=== PATIENT | male | born 1975 | race Two or more races ===

== ENCOUNTER 2019-10-23 13:27 | Emergency (ER) | payer MEDICAID ==
[~2019-10-23] VITALS: Ht 177.8 cm; Wt 79.4 kg
--- NOTE | 2019-10-23 13:43 | NUR ---
BIB [facility] C/O WEAKNESS AND CHEST PAIN S/P LIFTING WATER AT [employer]. PATIENT A/OX4, BREATHING EVEN AND UNLABORED, NO SOB NOTED, CHANGED INTO GOWN, ATTACHED TO THE FABRICATION AND LAYOUT CRAFTSMAN. EKG DONE.
[2019-10-23 13:51] LABS: CALCIUM, SERUM 8.8 mg/dL (8.5-10.1); MEAN CORPUSCULAR HGB CONC 35 g/dl (31.0-36.0); PLATELET COUNT (AUTO) 250 /CMM (150-450)
[2019-10-23] MEDS ORDERED: ASPI-605 PO (13:53)
[2019-10-23] MEDS ORDERED: TICA90TA PO (13:53)
[2019-10-23] MEDS ORDERED: GABA800T11 PO (13:53)
[2019-10-23] MEDS ORDERED: METO-357 PO (13:53)
[2019-10-23] MEDS ORDERED: LISI-607 PO (13:53)
[2019-10-23 13:56] LABS: BASOPHILS # (AUTO) 0.1 /CMM (0.0-0.2); BASOPHILS % (AUTO) 0.9 % (0.0-2.0); HEMATOCRIT 44 % (39-51); LYMPHOCYTES # (AUTO) 1.9 /CMM (0.8-4.8); LYMPHOCYTES % (AUTO) 25.8 % (20.0-44.0); MEAN CORPUSCULAR VOLUME 90 fL (80-96); MONOCYTES # (AUTO) 0.5 /CMM (0.1-1.30); MONOCYTES % (AUTO) 7.2 % (2.0-12.0); NEUTROPHILS # (AUTO) 4.6 /CMM (1.8-8.9); NEUTROPHILS % (AUTO) 64.1 % (43.0-81.0); RED BLOOD CELL COUNT(AUTO) 4.83 MIL/uL (4.5-6.0); WHITE BLOOD COUNT (AUTO) 7.2 K/uL (4.3-11.0)
--- NOTE | 2019-10-23 15:17 | NUR ---
PAGED DR Elizabeth GIRALDO FOR ADMISSION
--- NOTE | 2019-10-23 15:25 | NUR ---
GAVE MOVESHEET AND CLINICALS TO [facility]
--- NOTE | 2019-10-23 16:04 | NUR ---
SPOKE WITH FREEZER TUNNEL OPERATOR GAYE ANDRADES PROVIDED OVER THE PHONE. PER MD PATIENT IS STABLE FOR TRANSPORT. PER CM SHE'LL ARRANGE FOR TRANSPORTATION.
--- NOTE | 2019-10-23 17:00 | NUR ---
PER ADMITTING RECEIEVED AUTH TO ADMIT
--- NOTE | 2019-10-23 17:20 | NUR ---
@ 1720, Called Harish Ibarra at [phone]. Requested a confirmation and AUTH number for this admission prior to moving patient to the floor. I advised Stacey that patient is still in the ER and has not yet admitted to the floor under Dr. Vega. Per Stacey, she will transfer the patient to his [facility] and will call me back once transportation arranged.
--- NOTE | 2019-10-23 18:00 | NUR ---
PT IRATE. PT CALLED EMT "OBESE". PT MADE UNNECESSARY INSULTS TOWARDS STAFF. MOTHER AT BEDSIDE TRYING TO DEESCALATE SITUATION. PT CALLED [facility] "A BUNCH OF CATS AND DOGS".
--- NOTE | 2019-10-23 18:08 | NUR ---
Patient does not wish to proceed with medical care recommended by Dr. Baer. Patient given information related to possible complications, up to and including , which could occur as a result of leaving the hospital at this time. Patient verbalizes understanding of risks involved due to leaving against medical advice. Patient has signed AMA form. IV removed. Catheter intact and site benign. Pressure and 4x4 applied to site. No bleeding noted.
[2019-10-23 18:09] VITALS: BP 111/70
== END 2019-10-23 18:11 | disposition left against medical advice (07) ==
LOC: ER 13:31
DX: R07.89 Other chest pain (principal); I25.2 Old myocardial infarction; I10 Essential (primary) hypertension; Z95.5 Presence of coronary angioplasty implant and graft; Z79.82 Long term (current) use of aspirin; Z79.899 Other long term (current) drug therapy
CPT/HCPCS: 36415; 71045-TC; 80048-TC; 84484-TC; 85025-TC

== ENCOUNTER 2020-06-20 10:47 | Emergency (ER) | payer MEDICAID ==
[~2020-06-20] VITALS: Ht 180.3 cm; Wt 117.9 kg
[~2020-06-20 10:47] MED LIST: ASPI-605 PO; GABA800T11 PO; LISI-607 PO; METO-357 PO; TICA90TA PO
--- NOTE | 2020-06-20 11:00 | NUR ---
patient came in to the er c/o pressure like chest pain x few days, worst today s/p bike ride. On room air, breathing evenly and unlabored. connected to the monitor and pulse ox. kept comfortable, will continue to monitor accordingly.
[2020-06-20 11:17] LABS: BASOPHILS # (AUTO) 0.1 /CMM (0.0-0.2); BASOPHILS % (AUTO) 0.8 % (0.0-2.0); EOSINOPHILS % (AUTO) 1.4 % (0.0-6.0); HEMATOCRIT 47 % (39-51); HEMOGLOBIN 15.9 g/dL (13.5-17.5); LYMPHOCYTES # (AUTO) 1.6 /CMM (0.8-4.8); LYMPHOCYTES % (AUTO) 23.6 % (20.0-44.0); MEAN CORPUSCULAR HGB CONC 34 g/dl (31.0-36.0); MEAN CORPUSCULAR VOLUME 93 fL (80-96); MONOCYTES # (AUTO) 0.4 /CMM (0.1-1.30); NEUTROPHILS # (AUTO) 4.5 /CMM (1.8-8.9); NEUTROPHILS % (AUTO) 68.2 % (43.0-81.0); PLATELET COUNT (AUTO) 212 /CMM (150-450); RED BLOOD CELL COUNT(AUTO) 5.03 MIL/uL (4.5-6.0); WHITE BLOOD COUNT (AUTO) 6.7 K/uL (4.3-11.0)
[2020-06-20] MEDS ORDERED: LORAZEPAM INJ 2 MG/ML VIAL ONE (11:18)
[2020-06-20 11:24] LABS: CALCIUM, SERUM 8.5 mg/dL (8.5-10.1); CARBON DIOXIDE 28 mmol/L (21-32); CHLORIDE 100 mmol/L (98-107); CREATININE 1.4 mg/dL (0.6-1.3); GLUCOSE 292 mg/dL (74-106); POTASSIUM 4.1 mmol/L (3.5-5.1); SODIUM SERUM 136 mmol/L (136-145); UREA NITROGEN, BLOOD 13 mg/dL (7-18)
[2020-06-20] MEDS: LORAZEPAM INJ 2 MG/ML VIAL IV ONE (11:24)
[2020-06-20] MEDS: IV NS 0.9% 1,000 ML BAG IV ONE (11:50)
[2020-06-20 16:16] VITALS: BP 128/81
--- NOTE | 2020-06-20 16:16 | NUR ---
Patient discharged to home in stable condition. Written and verbal after care instructions given. Patient verbalizes understanding of instruction.IV removed. Catheter intact and site benign. Pressure and 4x4 applied to site. No bleeding noted.
== END 2020-06-20 16:16 | disposition home or self-care (01) ==
LOC: ER 10:52
DX: R07.89 Other chest pain (principal); I10 Essential (primary) hypertension; E11.65 Type 2 diabetes mellitus with hyperglycemia; I25.2 Old myocardial infarction; Z79.82 Long term (current) use of aspirin; Z79.899 Other long term (current) drug therapy
CPT/HCPCS: 36415; 71045; 80048; 84484 ×2; 85025; 93005 ×2; 96361; 96374; 99285; J2060; J7030

== ENCOUNTER 2022-06-27 06:31 | Emergency (ER) | payer MEDICAID ==
[~2022-06-27] VITALS: Ht 182.9 cm; Wt 83.9 kg
[~2022-06-27 06:31] MED LIST changes: -LISI-607 PO; +LISI-768 PO
--- NOTE | 2022-06-27 06:42 | NUR ---
TO ER BED 9. BIBRA39. L SIDE CP RADIATING TO L SHOULDER BURNING 05/13. PT IS ALERT AND ORIENTED. RR EVEN AND NON LABORED. CONNECTED TO MONITOR. AWAITING MD HERNANDEZ
[2022-06-27] MEDS ORDERED: ASPIRIN 81 MG TAB.CHEW PO ONE (07:00)
--- NOTE | 2022-06-27 07:25 | NUR ---
RECEIVED PT FROM ZOILA RN AWKE AND ALERT RESPIRATION SPONT AND EASY NO CHEST PAIN NSOB
[2022-06-27] MEDS ORDERED: ASPIRIN 81 MG TAB.CHEW ONE (07:29)
[2022-06-27 07:39] LABS: BASOPHILS # (AUTO) 0.1 K/uL (0.0-0.2); BASOPHILS % (AUTO) 1.1 % (0.0-2.0); EOSINOPHILS % (AUTO) 0.6 % (0.0-6.0); HEMATOCRIT 44 % (39-51); HEMOGLOBIN 15.2 g/dL (13.5-17.5); LYMPHOCYTES # (AUTO) 1.4 K/uL (0.8-4.8); LYMPHOCYTES % (AUTO) 25.2 % (20.0-44.0); MEAN CORPUSCULAR HGB CONC 35 g/dl (31.0-36.0); MEAN CORPUSCULAR VOLUME 91 fL (80-96); MONOCYTES # (AUTO) 0.5 K/uL (0.1-1.30); MONOCYTES % (AUTO) 8.4 % (2.0-12.0); NEUTROPHILS # (AUTO) 3.7 K/uL (1.8-8.9); NEUTROPHILS % (AUTO) 64.7 % (43.0-81.0); PLATELET COUNT (AUTO) 200 K/uL (150-450); RED BLOOD CELL COUNT(AUTO) 4.85 MIL/uL (4.5-6.0); WHITE BLOOD COUNT (AUTO) 5.7 K/uL (4.3-11.0)
[2022-06-27 07:46] LABS: CALCIUM, SERUM 8.2 mg/dL (8.5-10.1); CARBON DIOXIDE 28 mmol/L (21-32); CHLORIDE 102 mmol/L (98-107); GLUCOSE 143 mg/dL (74-106); POTASSIUM 3.5 mmol/L (3.5-5.1); SODIUM SERUM 138 mmol/L (136-145); UREA NITROGEN, BLOOD 16 mg/dL (7-18)
[2022-06-27] MEDS ORDERED: INSU100I14 SQ (08:19)
[2022-06-27] MEDS ORDERED: ATOR40TA PO (08:19)
[2022-06-27] MEDS ORDERED: ERTU15TA PO (08:19)
[2022-06-27] MEDS ORDERED: METF-442 PO (08:19)
[2022-06-27] MEDS ORDERED: INSU100I26 SQ (08:19)
[2022-06-27] MEDS ORDERED: ZOLP5TAB8 PO (08:19)
--- NOTE | 2022-06-27 08:25 | NUR ---
MOVE SHEET SUBMITTED.
--- NOTE | 2022-06-27 08:30 | NUR ---
COVID SWAB SENT TO LAB
--- NOTE | 2022-06-27 09:22 | NUR ---
GAYE SLAT BASKET MAKER HELPER MACHINE CALLED,CLINICALS GIVEN
--- NOTE | 2022-06-27 10:38 | NUR ---
LORRIE WEINSTEIN [phone] GIVING AUTH TO STAY [id number]
--- NOTE | 2022-06-27 10:41 | NUR ---
CALLED DR. PIZANO [phone] DR. VICENTE FREELANCE OPERATOR [employer] [facility]
--- NOTE | 2022-06-27 10:45 | NUR ---
DR. VICENTE SPEAKING WITH DR. PEARL
--- NOTE | 2022-06-27 12:25 | NUR ---
[facility] FOR BED
--- NOTE | 2022-06-27 13:36 | NUR ---
CALL FROM GAYE MIRROR DEPARTMENT SUPERVISOR,SHE'S WORKING ON TRANSFERRING TO [facility]
--- NOTE | 2022-06-27 15:33 | NUR ---
LORRIE WEINSTEIN [phone] ACCEPTED TO [facility] UNDER [facility]EEGHI PLEASE CALL [phone] BED NUMBER [id number] AUTH FOR ALS TRANSPORT IS [id number]
--- NOTE | 2022-06-27 15:36 | NUR ---
[facility] CALLED FOR TRANSPORT NO ALS AVAILABLE ON THE WEEKEND.
--- NOTE | 2022-06-27 15:39 | NUR ---
CALLED [facility] FOR TRANSPORT NO ALS AVAIALBLE AT THIS TIME.
--- NOTE | 2022-06-27 16:16 | NUR ---
pt voding 600ml clear yellow color
--- NOTE | 2022-06-27 18:43 | NUR ---
[facility] FOR TRANSFER AND ACCEPTING TS[facility]
--- NOTE | 2022-06-27 19:20 | NUR ---
Called [facility] [phone] SPOOK WITH [facility] RN NOT accepting pt transfer got canled
--- NOTE | 2022-06-27 19:36 | NUR ---
HAND OFF TO ZOILA MADERA
--- NOTE | 2022-06-27 19:48 | NUR ---
IV removed. Catheter intact and site benign. Pressure and 4x4 applied to site. No bleeding noted.
--- NOTE | 2022-06-27 19:49 | NUR ---
Pt ambulatory with a steady gait
--- NOTE | 2022-06-27 19:49 | NUR ---
Patient does not wish to proceed with medical care recommended by Torres Tsang. Patient given information related to possible complications, up to and including , which could occur as a result of leaving the hospital at this time. Patient verbalizes understanding of risks involved due to leaving against medical advice. Patient has signed AMA form.
[2022-06-27 19:50] VITALS: BP 116/78
== END 2022-06-27 19:50 | disposition left against medical advice (07) ==
LOC: ER 06:36
DX: R07.9 Chest pain, unspecified (principal); Z20.822 Contact with and (suspected) exposure to COVID-19; I25.2 Old myocardial infarction; Z95.5 Presence of coronary angioplasty implant and graft; I10 Essential (primary) hypertension; E11.9 Type 2 diabetes mellitus without complications; Z79.84 Long term (current) use of oral hypoglycemic drugs; Z79.4 Long term (current) use of insulin; Z79.82 Long term (current) use of aspirin; Z79.899 Other long term (current) drug therapy
CPT/HCPCS: 99285; 71045; 87426; 93005; 85025; 80048; 36415; 84484 ×2; 87081; C9803